=== PATIENT | female | born 1955 ===

== ENCOUNTER 2018-02-12 09:29 | Day surgery (SDC) | payer OTHER ==
[~2018-02-12] VITALS: Ht 172.7 cm; Wt 160.0 kg
[~2018-02-12 09:29] MED LIST: ALBU90OI6 INH; ALLO100 PO; ASCO500 PO; ASPI81CH PO; BUDE10.22 INH; BUME2 PO; CALC.25 PO; CARV25 PO; CHOL10002; CLOB.05TC TOP; FISH1000 PO; FLUT.05NI; GLIP10; GLUCOSAMINE CH1 EAC3 PO; KERALYT; LEVSOD100 PO; LEVSOD75; LISI20 PO; LOVA40 PO; NYST100P TOP; Prozac20 MG PO; Robaxin-750750 MG PO; SAXA2.5T PO; TRAM50 PO
--- NOTE | 2018-02-12 10:29 | NUR ---
02/12/18 1028 Aretha Perez DELAYED ENTRY 0988 PT NOTIFIED IN LOBBY OF DELAY IN BEING ADMITTED TO PREOP. PT UNDERSTANDING.
== END 2018-02-12 12:29 | disposition home or self-care (01) ==
LOC: ORSCSDS 09:29
PROVIDERS: Orthopaedic Surgery
PROC: 01N54ZZ Release Median Nerve, Percutaneous Endoscopic Approach (ICD-10-PCS; principal; 2018-02-12 10:30)
DX: G56.01 Carpal tunnel syndrome, right upper limb (principal); I10 Essential (primary) hypertension; G47.33 Obstructive sleep apnea (adult) (pediatric); E11.9 Type 2 diabetes mellitus without complications; E66.9 Obesity, unspecified; Z68.43 Body mass index [BMI] 50.0-59.9, adult; Z79.82 Long term (current) use of aspirin; Z79.899 Other long term (current) drug therapy
CPT/HCPCS: 82947; J0690; J2250; J3010; J7120

== ENCOUNTER 2018-09-03 10:26 | Day surgery (SDC) | payer OTHER ==
[~2018-09-03] VITALS: Ht 172.7 cm; Wt 163.5 kg
== END 2018-09-03 12:20 | disposition home or self-care (01) ==
LOC: ORSCSDS 10:26
PROVIDERS: Orthopaedic Surgery
PROC: 01N54ZZ Release Median Nerve, Percutaneous Endoscopic Approach (ICD-10-PCS; principal; 2018-09-03 11:30)
DX: G56.02 Carpal tunnel syndrome, left upper limb (principal); E11.22 Type 2 diabetes mellitus with diabetic chronic kidney disease; I12.9 Hypertensive chronic kidney disease with stage 1 through stage 4 chronic kidney disease, or unspecified chronic kidney disease; N18.3 Chronic kidney disease, stage 3 (moderate); E03.9 Hypothyroidism, unspecified; G47.33 Obstructive sleep apnea (adult) (pediatric); E66.01 Morbid (severe) obesity due to excess calories; Z68.43 Body mass index [BMI] 50.0-59.9, adult; J45.909 Unspecified asthma, uncomplicated; Z79.899 Other long term (current) drug therapy; Z79.82 Long term (current) use of aspirin
CPT/HCPCS: 82947; J0690; J2250; J3010; J7120

== ENCOUNTER 2019-04-16 06:11 | Day surgery (SDC) | payer OTHER ==
[~2019-04-16] VITALS: Ht 172.7 cm; Wt 166.2 kg
--- NOTE | 2019-04-16 06:48 | NUR ---
Ambulatory in Day Surgery, Patient states colon prep results clear. History, Chart, Medications and Allergies reviewed before start of procedure. Lungs clear T/O to Auscultation. Patient confirms NPO status and agrees with scheduled surgery. Pre-Op teaching done. Pt verbalizes understanding. Patient States Post-Procedure ride home has been arranged WITH DAUGHTER CHRISTINA.
--- NOTE | 2019-04-16 07:54 | NUR ---
04/16/19 0754 Jaylon David See Anesthesia record. Patient to ENDO 1, History, Chart, Medications and Allergies reviewed before start of procedure. MONITOR INTACT WITH CONTINUOUS PULSE OXIMETRY AND INTERMITTENT BP. O2 VIA POM INTACT THROUGHOUT SEDATION/PROCEDURE.
--- NOTE | 2019-04-16 08:48 | NUR ---
Patient up to Ambulate independently. Gait steady. Discharge instructions reviewed with patient. Patient verbalizes understanding. Copy given to patient to take home. Discharged via wheelchair to private car for ride home WITH DAUGHTER.
== END 2019-04-16 23:38 | disposition home or self-care (01) ==
LOC: ORSCMMR 06:11 → ORD 07:30 → ORSCMMR 07:30 → ORD 08:00 → ORSCMMR 23:38
PROVIDERS: Surgery
PROC: 0DJD8ZZ Inspection of Lower Intestinal Tract, Via Natural or Artificial Opening Endoscopic (ICD-10-PCS; principal; 2019-04-16 07:30)
DX: Z12.11 Encounter for screening for malignant neoplasm of colon (principal); Z86.010 Personal history of colon polyps; I10 Essential (primary) hypertension; G47.33 Obstructive sleep apnea (adult) (pediatric); E11.9 Type 2 diabetes mellitus without complications; E03.9 Hypothyroidism, unspecified; E78.5 Hyperlipidemia, unspecified; Z79.899 Other long term (current) drug therapy; Z79.82 Long term (current) use of aspirin; E66.01 Morbid (severe) obesity due to excess calories; Z68.43 Body mass index [BMI] 50.0-59.9, adult
CPT/HCPCS: J2250; J2405; J2704; J7120